=== PATIENT | female | born 1990 | race Caucasian/White ===

== ENCOUNTER 2017-08-11 00:29 | Inpatient (IN) | payer BC ==
[2017-08-11] MEDS ORDERED: Carboprost Tromethamine 250 MCG/1 ML Amp IM PRN (02:06)
[2017-08-11] MEDS ORDERED: Nalbuphine 10 MG/1 ML Vial IVPUSH PRN (02:06)
[2017-08-11] MEDS ORDERED: Lidocaine 1% 50 ML MDV INJECT PRN (02:06)
[2017-08-11] MEDS ORDERED: Methylergonovine 0.2 MG/1 ML Amp IM PRN (02:06)
[2017-08-11] MEDS ORDERED: Tranexamic Acid 1,000 MG in Sodium Chloride 0.9% 100 ML IV PRN (02:06)
[2017-08-11] MEDS ORDERED: Misoprostol 200 MCG Tab PO PRN (02:06)
[2017-08-11] MEDS ORDERED: Sodium Chloride 0.9% 10 ML Syringe FLUSH PRN (02:06)
[2017-08-11] MEDS ORDERED: Water For Irrigation,Sterile 1,000 ML Container IRR PRN (02:06)
[2017-08-11] MEDS ORDERED: Sodium Chloride 0.9% 2.5 ML Syringe FLUSH PRN (02:06)
[2017-08-11] MEDS ORDERED: Oxytocin/0.9 % Sodium Chloride 30 UNIT/500 ML BAG IV SCH (02:15)
[2017-08-11] MEDS ORDERED: Lactated Ringers 1,000 ML IV SCH (02:15)
[2017-08-11] MEDS ORDERED: Ampicillin 2 GM in Sodium Chloride 0.9% 100 ML IV ONE (02:30)
[2017-08-11] MEDS ORDERED: Ampicillin 1 GM in Sodium Chloride 0.9% 50 ML IV SCH (06:30)
[2017-08-11] MEDS ORDERED: Bisacodyl 10 MG Supp RECTAL PRN (06:51)
[2017-08-11] MEDS ORDERED: Benzocaine/Menthol 20%-0.5% Spray 78 GM Cannister TOP PRN (06:51)
[2017-08-11] MEDS ORDERED: Lanolin 100% Cream 7 GM Tube TOP PRN (06:51)
[2017-08-11] MEDS ORDERED: Acetaminophen 500 MG Tab PO PRN ×2 (06:51)
[2017-08-11] MEDS ORDERED: Docusate Sodium 100 MG Cap PO PRN (06:51)
[2017-08-11] MEDS ORDERED: Ibuprofen 400 MG Tab PO PRN (06:51)
[2017-08-11] MEDS ORDERED: Ibuprofen 800 MG Tab PO PRN (06:51)
[2017-08-11] MEDS ORDERED: oxyCODONE 5 MG Tab PO PRN (06:51)
[2017-08-11] MEDS ORDERED: Witch Hazel Medicated Pads 40/Jar TOP PRN (06:51)
--- NOTE | 2017-08-11 06:59 | PCM.LDHP ---
L&D History of Present Illness - General Date of Service: 08/11/17 Admit Problem/Dx: Patient Status Order with Admit Dx/Problem 08/11/17 00:52 Patient Status [ADT] Routine 08/11/17 06:52 Patient Status [ADT] Routine Admission Diagnosis/Problem Admission Diagnosis/Problem 08/11/17 06:52 27yo EDC 08/15/2017 39 37wks. Comes in active labor. 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: - Past Surgical History HEENT Surgical History: Reports: Tonsillectomy Social & Family History - Family History Cardiac: Reports: Blood Clots/VTE/DVT, High Cholesterol, Hypertension, Other ( See Below) Other Cardiac Family History: heart disease OBGYN: Reports: Endocrine/Metabolic: Reports: Diabetes, type II, Other (See Below) Other Endocrine/Metabolic Family History: thyroid disease Oncologic: Reports: Leukemia, Lung - Tobacco Use Smoking Status *Q: Never Smoker - Recreational Drug Use Recreational Drug Use: No H&P Review of Systems - Review of Systems: Review Of Systems: See Below General: Reports: No Symptoms HEENT: Reports: No Symptoms Pulmonary: Reports: No Symptoms Cardiovascular: Reports: No Symptoms Gastrointestinal: Reports: No Symptoms Genitourinary: Reports: No Symptoms Musculoskeletal: Reports: No Symptoms Skin: Reports: No Symptoms Psychiatric: Reports: No Symptoms Neurological: Reports: No Symptoms Hematologic/Lymphatic: Reports: No Symptoms Immunologic: Reports: No Symptoms L&D Exam - Exam Exam: See Below - Vital Signs Weight: 70.307 kg - OB Specific Movement: Active Heart Tones: Present Presentation: Vertex - Exam General: Alert, Oriented, Cooperative, Mild Distress Lungs: Normal Respiratory Effort GI/Abdominal Exam: Soft, Non-Tender, Other Genitourinary: Normal external exam, Normal bimanual exam, Cervical dilitation Back Exam: Normal Inspection, Full Range of Motion Extremities: Normal Range of Motion, Non-Tender, No Pedal Edema, Normal Capillary Refill Skin: Warm, Dry, Intact Neurological: Reflexes Equal Bilateral, Normal Speech, Normal Tone Psychiatric: Alert, Normal Affect, Normal Mood - Patient Data Lab Results Last 24 hrs: Laboratory Results - last 24 hr 08/11/17 08/11/17 Range/Units 02:22 02:22 WBC 9.10 (4.0-11.0) K/uL RBC 4.05 L (4.30-5.90) M/uL Hgb 13.3 (12.0-16.0) g/dL Hct 37.7 (36.0-46.0) % MCV 93.1 (80.0-98.0) fL MCH 32.8 H (27.0-32.0) pg MCHC 35.3 (31.0-37.0) g/dL RDW Std Deviation 46.2 (28.0-62.0) fl RDW Coeff of Humphrey 14 (11.0-15.0) % Plt Count 154 (150-400) K/uL MPV 11.90 (7.40-12.00) fL Nucleated RBC % 0.0 /100WBC Nucleated RBCs # 0 K/uL Blood Type A POSITIVE Antibody Screen NEGATIVE Result Diagrams: 08/11/17 02:22 - Problem List (1) Supervision of normal IUP (intrauterine ) in multigravida SNOMED Code(s): 560744708, 028494216, 793020292 ICD Code: Z34.80 - ENCOUNTER FOR SUPRVSN OF NORMAL , UNSP TRIMESTER Status: Acute Priority: High Current Visit: Yes Qualifiers: Trimester: third trimester Qualified Code(s): Z34.83 - Encounter for supervision of other normal , third trimester (2) (normal spontaneous vaginal delivery) SNOMED Code(s): 31198666 ICD Code: O80 - ENCOUNTER FOR FULL-TERM UNCOMPLICATED DELIVERY Status: Acute Priority: High Current Visit: Yes Problem List Initiated/Reviewed/Updated: Yes Orders Last 24hrs: Active Orders 24 hr Category Date Time Status Patient Status [ADT] Routine ADT 08/11/17 06:52 Ordered Heart Tones [RC] CONTINUOUS Care 08/11/17 02:06 Inactive Non Stress Test [RC] PER UNIT ROUTINE Care 08/11/17 00:52 Inactive May Shower [RC] ASDIRECTED Care 08/11/17 02:06 Inactive May Shower [RC] ASDIRECTED Care 08/11/17 06:51 Ordered Notify Provider [RC] PRN Care 08/11/17 02:06 Inactive Up ad Maris [RC] ASDIRECTED Care 08/11/17 00:52 Inactive Up ad Maris [RC] ASDIRECTED Care 08/11/17 06:51 Ordered Vaginal Exam [RC] Click to Edit Care 08/11/17 00:52 Inactive Vital Signs [RC] PER UNIT ROUTINE Care 08/11/17 00:52 Inactive Vital Signs [RC] PER UNIT ROUTINE Care 08/11/17 06:51 Ordered Regular Diet [DIET] Diet 08/11/17 Breakfast Ordered Acetaminophen [Tylenol Extra Strength] Med 08/11/17 06:51 Ordered 1,000 mg PO Q4H PRN Acetaminophen [Tylenol Extra Strength] Med 08/11/17 06:51 Ordered 500 mg PO Q4H PRN Benzocaine/Menthol [Dermoplast Pain Relief 20%-0.5% Med 08/11/17 06:51 Ordered [place]] 78 gm TOP ASDIRECTED PRN Bisacodyl [Dulcolax] Med 08/11/17 06:51 Ordered 10 mg RECTAL .ONCE PRN Docusate Sodium [Colace] Med 08/11/17 06:51 Ordered 100 mg PO BID PRN Ibuprofen [Motrin] Med 08/11/17 06:51 Ordered 400 mg PO Q4H PRN Ibuprofen [Motrin] Med 08/11/17 06:51 Ordered 800 mg PO Q6H PRN Lanolin [Lansinoh HPA] Med 08/11/17 06:51 Ordered See Dose Instructions TOP ASDIRECTED PRN Witch Whitney [Tucks] Med 08/11/17 06:51 Ordered 1 pad TOP ASDIRECTED PRN oxyCODONE Med 08/11/17 06:51 Ordered 5 mg PO Q2H PRN Assess Lochia [WOMSER] Per Unit Routine Oth 08/11/17 06:51 Ordered Assess Uterine Involution [WOMSER] Per Unit Routine Oth 08/11/17 06:51 Ordered Peripheral IV Discontinue [OM.PC] Routine Oth 08/11/17 06:51 Ordered Resuscitation Status Routine Resus Stat 08/11/17 06:51 Ordered Medication Orders Acetaminophen (Tylenol Extra Strength) 500 mg PO Q4H PRN PRN Reason: Pain Acetaminophen (Tylenol Extra Strength) 1,000 mg PO Q4H PRN PRN Reason: Pain Benzocaine/Menthol (Dermoplast Pain Relief 20%-0.5% [place]) 78 gm TOP ASDIRECTED PRN PRN Reason: Perineal Comfort Measure Bisacodyl (Dulcolax) 10 mg RECTAL .ONCE PRN PRN Reason: Constipation Docusate Sodium (Colace) 100 mg PO BID PRN PRN Reason: Constipation Emollient Ointment (Lansinoh Hpa) 0 gm TOP ASDIRECTED PRN PRN Reason: Sore Nipples Ibuprofen (Motrin) 400 mg PO Q4H PRN PRN Reason: Pain Ibuprofen (Motrin) 800 mg PO Q6H PRN PRN Reason: Pain Oxycodone HCl (Oxycodone) 5 mg PO Q2H PRN PRN Reason: Pain Witch Whitney (Tucks) 1 pad TOP ASDIRECTED PRN PRN Reason: comfort care Assessment/Plan Comment:: Labor A:27yo EDC 08/15/2017 39 37wks. Comes in active labor. A+, RI, GBS pos P: admitted, natural labor, GBS + received one dose of Amp 2gm, became complete and delivered a healthy baby boy. Mother and baby stable Delivery: A: of viable male, APGARS 9/9, Wt pending bonding. 1st deg lac with repair , EBL 100cc, Stable and bonding well with baby P: Routine pp plan of care.
--- NOTE | 2017-08-11 07:03 | PCM.DEL ---
L & D Note - General Info Date of Service: 08/11/17 Mother's Due Date: 08/15/14 - Delivery Note Labor: Spontaneous Delivery Outcome: Livebirth Infant Delivery Mode: Spontaneous Presentation: Vertex Nuchal Cord: None Anesthesia Type: None Anesthetic: Lidocaine (Xylocaine) 1% Plain Local Anesthetic Volume: 2cc Amniotic Fluid Description: Clear Episiotomy Type: None Laceration: 1st Degree, Perineal Suture type: Vicryl Suture size: 3-0 Placenta: Intact, Spontaneous Cord: 3 Vessels Estimated Blood Loss: 100 Resuscitation Needed: No Score 1 min: 9 Score 5 min: 9 Second Stage Interventions: Reports: Pushing, Pulls Own Legs Back Delivery Comments (Free Text/Narrative):: of viable male. Radha pushed with ctx and delivered head, shoulders and body followed easily. Infant to mothers abd with RN at for evaluation. Delayed cord clamping. Pitocin to IVF, Cord clamped x2 and cut by ABIODUN Dasilva. Placenta delivered grossly intact. Inspection noted 1st degree perineal lac that was repaired in the usual manor. Bimanual normal. EBL 100cc. APGARS 9/9. Mother and baby left in stable condition for recovery bonding well. - General Info Date of Service: 08/11/17 Admission Dx/Problem (Free Text): Patient Status Order with Admit Dx/Problem 08/11/17 00:52 Patient Status [ADT] Routine 08/11/17 06:52 Patient Status [ADT] Routine Admission Diagnosis/Problem Admission Diagnosis/Problem 08/11/17 06:52 27yo EDC 08/15/2017 39 37wks. Comes in active labor. A+, RI, GBS pos Functional Status: Reports: Pain Controlled - Review of Systems General: Reports: No Symptoms HEENT: Reports: No Symptoms Pulmonary: Reports: No Symptoms Cardiovascular: Reports: No Symptoms Gastrointestinal: Reports: No Symptoms Genitourinary: Reports: No Symptoms Musculoskeletal: Reports: No Symptoms Skin: Reports: No Symptoms Neurological: Reports: No Symptoms Psychiatric: Reports: No Symptoms - Patient Data Weight - Most Recent: 70.307 kg Lab Results Last 24 Hours: Laboratory Results - last 24 hr 08/11/17 08/11/17 Range/Units 02:22 02:22 WBC 9.10 (4.0-11.0) K/uL RBC 4.05 L (4.30-5.90) M/uL Hgb 13.3 (12.0-16.0) g/dL Hct 37.7 (36.0-46.0) % MCV 93.1 (80.0-98.0) fL MCH 32.8 H (27.0-32.0) pg MCHC 35.3 (31.0-37.0) g/dL RDW Std Deviation 46.2 (28.0-62.0) fl RDW Coeff of Humphrey 14 (11.0-15.0) % Plt Count 154 (150-400) K/uL MPV 11.90 (7.40-12.00) fL Nucleated RBC % 0.0 /100WBC Nucleated RBCs # 0 K/uL Blood Type A POSITIVE Antibody Screen NEGATIVE Med Orders - Current: Current Medications Acetaminophen (Tylenol Extra Strength) 500 mg PO Q4H PRN PRN Reason: Pain Acetaminophen (Tylenol Extra Strength) 1,000 mg PO Q4H PRN PRN Reason: Pain Benzocaine/Menthol (Dermoplast Pain Relief 20%-0.5% [place]) 78 gm TOP ASDIRECTED PRN PRN Reason: Perineal Comfort Measure Bisacodyl (Dulcolax) 10 mg RECTAL .ONCE PRN PRN Reason: Constipation Docusate Sodium (Colace) 100 mg PO BID PRN PRN Reason: Constipation Emollient Ointment (Lansinoh Hpa) 0 gm TOP ASDIRECTED PRN PRN Reason: Sore Nipples Ibuprofen (Motrin) 400 mg PO Q4H PRN PRN Reason: Pain Ibuprofen (Motrin) 800 mg PO Q6H PRN PRN Reason: Pain Oxycodone HCl (Oxycodone) 5 mg PO Q2H PRN PRN Reason: Pain Witch Whitney (Tucks) 1 pad TOP ASDIRECTED PRN PRN Reason: comfort care Discontinued Medications Carboprost Tromethamine (Hemabate Ds) 250 mcg IM ASDIRECTED PRN PRN Reason: Post Hemorrhage Tranexamic Acid 1,000 mg/ (Sodium Chloride) 110 mls @ 660 mls/hr IV ONETIME PRN PRN Reason: Bleeding Lactated Ringer's (Ringers, Lactated) 1,000 mls @ 150 mls/hr IV ASDIRECTED CASEY Last Admin: 08/11/17 02:25 Dose: 150 mls/hr Oxytocin/Sodium Chloride (Oxytocin 30 Unit/500 Ml-Ns) 30 unit in 500 mls @ 999 mls/hr IV TITRATE [facility] Last Admin: 08/11/17 06:29 Dose: 999 mls/hr Ampicillin Sodium 2 gm/ Sodium (Chloride) 100 mls @ 200 mls/hr IV ONETIME ONE Stop: 08/11/17 02:59 Last Admin: 08/11/17 02:33 Dose: 200 mls/hr Ampicillin Sodium 1 gm/ Sodium (Chloride) 50 mls @ 100 mls/hr IV Q4H [facility] Lidocaine HCl (Xylocaine 1%) 50 ml INJECT .ONCE PRN PRN Reason: Laceration repair Last Admin: 08/11/17 06:34 Dose: 50 ml Methylergonovine Maleate (Methergine) 0.2 mg IM ASDIRECTED PRN PRN Reason: Post Hemorrhage Misoprostol (Cytotec) 200 mcg PO .ONCE PRN PRN Reason: Post Hemorrhage Nalbuphine HCl (Nubain) 10 mg IVPUSH Q1H PRN PRN Reason: Pain (severe 7-10) Sodium Chloride (Saline Flush) 10 ml FLUSH ASDIRECTED PRN PRN Reason: Keep Vein Open Sodium Chloride (Saline Flush) 2.5 ml FLUSH ASDIRECTED PRN PRN Reason: Keep Vein Open Sterile Water (Sterile Water For Irrigation) 1,000 ml IRR ASDIRECTED PRN PRN Reason: delivery - Exam General: Alert, Oriented, Cooperative Lungs: Normal Respiratory Effort (Female) Exam: Normal External Exam, Normal Bimanual Exam, Vaginal Bleeding, Vaginal Tears (with repair) Back Exam: Full Range of Motion Extremities: Normal Range of Motion, Non-Tender, No Pedal Edema, Normal Capillary Refill Skin: Warm, Dry, Intact Wound/Incisions: Healing Well Neurological: No New Focal Deficit, Normal Speech, Normal Tone Psy/Mental Status: Alert, Normal Affect, Normal Mood - Problem List & Annotations (1) Supervision of normal IUP (intrauterine ) in multigravida SNOMED Code(s): 479415110, 700994160, 647007923 Code(s): Z34.80 - ENCOUNTER FOR SUPRVSN OF NORMAL , UNSP TRIMESTER Status: Acute Priority: High Current Visit: Yes Qualifiers: Trimester: third trimester Qualified Code(s): Z34.83 - Encounter for supervision of other normal , third trimester (2) (normal spontaneous vaginal delivery) SNOMED Code(s): 50938053 Code(s): O80 - ENCOUNTER FOR FULL-TERM UNCOMPLICATED DELIVERY Status: Acute Priority: High Current Visit: Yes - Problem List Review Problem List Initiated/Reviewed/Updated: Yes - My Orders Last 24 Hours: My Active Orders 08/11/17 00:52 Non Stress Test [RC] PER UNIT ROUTINE Up ad Maris [RC] ASDIRECTED Vaginal Exam [RC] Click to Edit Vital Signs [RC] PER UNIT ROUTINE 08/11/17 02:06 Heart Tones [RC] CONTINUOUS May Shower [RC] ASDIRECTED Notify Provider [RC] PRN 08/11/17 06:51 May Shower [RC] ASDIRECTED Up ad Maris [RC] ASDIRECTED Vital Signs [RC] PER UNIT ROUTINE Acetaminophen [Tylenol Extra Strength] 1,000 mg PO Q4H PRN Acetaminophen [Tylenol Extra Strength] 500 mg PO Q4H PRN Benzocaine/Menthol [Dermoplast Pain Relief 20%-0.5% [place]] 78 gm TOP ASDIRECTED PRN Bisacodyl [Dulcolax] 10 mg RECTAL .ONCE PRN Docusate Sodium [Colace] 100 mg PO BID PRN Ibuprofen [Motrin] 400 mg PO Q4H PRN Ibuprofen [Motrin] 800 mg PO Q6H PRN Lanolin [Lansinoh HPA] See Dose Instructions TOP ASDIRECTED PRN Witch Whitney [Tucks] 1 pad TOP ASDIRECTED PRN oxyCODONE 5 mg PO Q2H PRN Assess Lochia [WOMSER] Per Unit Routine Assess Uterine Involution [WOMSER] Per Unit Routine Peripheral IV Discontinue [OM.PC] Routine Resuscitation Status Routine 08/11/17 06:52 Patient Status [ADT] Routine 08/11/17 Breakfast Regular Diet [DIET] - Plan Plan:: Labor A:27yo EDC 08/15/2017 39 37wks. Comes in active labor. A+, RI, GBS pos P: admitted, natural labor, GBS + received one dose of Amp 2gm, became complete and delivered a healthy baby boy. Mother and baby stable Delivery: A: of viable male, APGARS 9/9, Wt pending bonding. 1st deg lac with repair , EBL 100cc, Stable and bonding well with baby P: Routine pp plan of care.
--- NOTE | 2017-08-12 06:51 | PCM.DCSUM1 ---
Discharge Summary - Hospital Course Free Text/Narrative:: Discharge home with . Follow up in 6 weeks for post or sooner if needed. - Discharge Data Discharge Date: 08/12/17 Discharge Disposition: Home, Self-Care 01 Condition: Good - Discharge Diagnosis/Problem(s) (1) Supervision of normal IUP (intrauterine ) in multigravida SNOMED Code(s): 464759228, 476440319, 848958578 ICD Code: Z34.80 - ENCOUNTER FOR SUPRVSN OF NORMAL , UNSP TRIMESTER Status: Acute Priority: High Current Visit: Yes Qualifiers: Trimester: third trimester Qualified Code(s): Z34.83 - Encounter for supervision of other normal , third trimester (2) (normal spontaneous vaginal delivery) SNOMED Code(s): 09141422 ICD Code: O80 - ENCOUNTER FOR FULL-TERM UNCOMPLICATED DELIVERY Status: Acute Priority: High Current Visit: Yes - Patient Instructions Diet: Usual Diet as Tolerated Activity: As Tolerated, No Strenuous Activities, Rest and Relax Today Driving: May Drive Today Showering/Bathing: May Shower Notify Provider of: Fever, Increased Pain, Swelling and Redness, Nausea and/or Vomiting Other/Special Instructions: Discharge home with . Follow up in 6 weeks for post or sooner if needed. - Discharge Plan Home Medications: Home Meds PNV95/Ferrous Fumarate/FA [ Tablet] 1 tab PO DAILY 08/11/17 [History] Referrals: [facility] [Outside] Lulu Benavides CNM [Mid-] - 09/22/17 1:30 pm - General Info Date of Service: 08/12/17 Admission Dx/Problem (Free Text: Patient Status Order with Admit Dx/Problem 08/11/17 00:52 Patient Status [ADT] Routine 08/11/17 06:52 Patient Status [ADT] Routine Admission Diagnosis/Problem Admission Diagnosis/Problem 08/11/17 06:52 27yo EDC 08/15/2017 39 37wks. Comes in active labor. A+, RI, GBS pos Functional Status: Reports: Pain Controlled, Tolerating Diet, Ambulating, Urinating - Review of Systems General: Reports: No Symptoms HEENT: Reports: No Symptoms Pulmonary: Reports: No Symptoms Cardiovascular: Reports: No Symptoms Gastrointestinal: Reports: No Symptoms Genitourinary: Reports: No Symptoms Musculoskeletal: Reports: No Symptoms Skin: Reports: No Symptoms Neurological: Reports: No Symptoms Psychiatric: Reports: No Symptoms - Patient Data Vitals - Most Recent: Last Vital Signs Temp 36.3 C 08/12/17 04:32 Pulse 71 08/12/17 04:32 Resp 16 08/12/17 04:32 BP 101/58 L 08/12/17 04:32 Pulse Ox 97 08/12/17 04:32 Weight - Most Recent: 70.307 kg Med Orders - Current: Current Medications Acetaminophen (Tylenol Extra Strength) 500 mg PO Q4H PRN PRN Reason: Pain Acetaminophen (Tylenol Extra Strength) 1,000 mg PO Q4H PRN PRN Reason: Pain Benzocaine/Menthol (Dermoplast Pain Relief 20%-0.5% [place]) 78 gm TOP ASDIRECTED PRN PRN Reason: Perineal Comfort Measure Bisacodyl (Dulcolax) 10 mg RECTAL .ONCE PRN PRN Reason: Constipation Docusate Sodium (Colace) 100 mg PO BID PRN PRN Reason: Constipation Emollient Ointment (Lansinoh Hpa) 0 gm TOP ASDIRECTED PRN PRN Reason: Sore Nipples Last Admin: 08/11/17 15:12 Dose: 7 gm Ibuprofen (Motrin) 400 mg PO Q4H PRN PRN Reason: Pain Ibuprofen (Motrin) 800 mg PO Q6H PRN PRN Reason: Pain Oxycodone HCl (Oxycodone) 5 mg PO Q2H PRN PRN Reason: Pain Witch Whitney (Tucks) 1 pad TOP ASDIRECTED PRN PRN Reason: comfort care Discontinued Medications Carboprost Tromethamine (Hemabate Ds) 250 mcg IM ASDIRECTED PRN PRN Reason: Post Hemorrhage Tranexamic Acid 1,000 mg/ (Sodium Chloride) 110 mls @ 660 mls/hr IV ONETIME PRN PRN Reason: Bleeding Lactated Ringer's (Ringers, Lactated) 1,000 mls @ 150 mls/hr IV ASDIRECTED [facility] Last Admin: 08/11/17 02:25 Dose: 150 mls/hr Oxytocin/Sodium Chloride (Oxytocin 30 Unit/500 Ml-Ns) 30 unit in 500 mls @ 999 mls/hr IV TITRATE [facility] Last Infusion: 08/11/17 06:41 Dose: 0 mls/hr Ampicillin Sodium 2 gm/ Sodium (Chloride) 100 mls @ 200 mls/hr IV ONETIME ONE Stop: 08/11/17 02:59 Last Admin: 08/11/17 02:33 Dose: 200 mls/hr Ampicillin Sodium 1 gm/ Sodium (Chloride) 50 mls @ 100 mls/hr IV Q4H [facility] Last Admin: 08/11/17 07:59 Dose: Not Given Lidocaine HCl (Xylocaine 1%) 50 ml INJECT .ONCE PRN PRN Reason: Laceration repair Last Admin: 08/11/17 06:34 Dose: 50 ml Methylergonovine Maleate (Methergine) 0.2 mg IM ASDIRECTED PRN PRN Reason: Post Hemorrhage Misoprostol (Cytotec) 200 mcg PO .ONCE PRN PRN Reason: Post Hemorrhage Nalbuphine HCl (Nubain) 10 mg IVPUSH Q1H PRN PRN Reason: Pain (severe 7-10) Sodium Chloride (Saline Flush) 10 ml FLUSH ASDIRECTED PRN PRN Reason: Keep Vein Open Sodium Chloride (Saline Flush) 2.5 ml FLUSH ASDIRECTED PRN PRN Reason: Keep Vein Open Sterile Water (Sterile Water For Irrigation) 1,000 ml IRR ASDIRECTED PRN PRN Reason: delivery - Exam General: Reports: Alert, Oriented, Cooperative, No Acute Distress Lungs: Reports: Normal Respiratory Effort GI/Abdominal Exam: Soft, Non-Tender (Female) Exam: Vaginal Bleeding Rectal (Female) Exam: Deferred Back Exam: Reports: Full Range of Motion Extremities: Normal Inspection, Normal Range of Motion, Non-Tender, No Pedal Edema, Normal Capillary Refill Skin: Reports: Warm, Dry, Intact Wound/Incisions: Reports: Healing Well Neurological: Reports: No New Focal Deficit, Normal Speech, Normal Tone Psy/Mental Status: Reports: Alert, Normal Affect, Normal Mood
== END 2017-08-12 11:30 | disposition home or self-care (01) | DRG 560 ==
LOC: MW.OBCHECK 00:29 → MW.OB 00:31 → MW.OBCHECK 02:06 → OBSVTOIN 06:28
PROVIDERS: ADMIT Obstetrics & Gynecology; ATTEND Obstetrics & Gynecology
PROC: 10E0XZZ Delivery of Products of Conception, External Approach (ICD-10-PCS; principal; 2017-08-11)
PROC: 0HQ9XZZ Repair Perineum Skin, External Approach (ICD-10-PCS; 2017-08-11)
DX: O99.824 Streptococcus B carrier state complicating childbirth (principal); O70.0 First degree perineal laceration during delivery; Z3A.39 39 weeks gestation of pregnancy; Z37.0 Single live birth
CPT/HCPCS: 59025; 59409; 85027; 86850; 86900; 86901; A9270-GY; J0290; J2590; J7030; J7120

== ENCOUNTER 2017-08-20 22:44 | Inpatient (IN) | payer BC ==
[2017-08-20] MEDS ORDERED: Sodium Chloride 0.9% 1,000 ML IV ONE (23:00)
--- NOTE | 2017-08-20 23:08 | EDM.PDOC ---
ED HPI GENERAL MEDICAL PROBLEM - General Chief Complaint: Fever Stated Complaint: CHILLS/BODYACHE/HEADACHE Time Seen by Provider: 08/20/17 22:58 - History of Present Illness INITIAL COMMENTS - FREE TEXT/NARRATIVE: HISTORY AND PHYSICAL: History of present illness: Patient's 27-year-old white female is 10 days status post vaginal delivery this was uncomplicated presents now a concern of lower abdominal pain and fever 1 day she's had some intermittent vaginal bleeding and lower abdominal discomfort she denies urinary complaints. She had no cough no shortness of breath she denies any erythema or localized breast discomfort. There's been no vomiting no diarrhea Review of systems: As per history of present illness and below otherwise all systems reviewed and negative. Past medical history: As per history of present illness and as reviewed below otherwise noncontributory. Surgical history: As per history of present illness and as reviewed below otherwise noncontributory. Social history: No reported history of drug or alcohol abuse. Family history: As per history of present illness and as reviewed below otherwise noncontributory. Physical exam: HEENT: Atraumatic, normocephalic, pupils reactive, negative for conjunctival pallor or scleral icterus, mucous membranes moist, throat clear, neck supple, nontender, trachea midline. Lungs: Clear to auscultation, breath sounds equal bilaterally, chest nontender. Heart: S1S2, regular, negative for clicks, rubs, or JVD. Abdomen: Soft, nondistended, mild tenderness suprapubically no rebound no guarding. Negative for masses or hepatosplenomegaly. Negative for costovertebral tenderness. Pelvis: Stable nontender. Genitourinary: Deferred. Rectal: Deferred. Extremities: Atraumatic, negative for cords or calf pain. Neurovascular unremarkable. Neuro: Awake, alert, oriented. Cranial nerves II through XII unremarkable. Cerebellum unremarkable. Motor and sensory unremarkable throughout. Exam nonfocal. Diagnostics: CBC CMP UA urine culture blood culture 2 pelvic ultrasound chest x-ray Therapeutics: Saline 1 L bolus cefotaxime 2 g IV Impression: In 10 days #2 fever #3 lower abdominal pain rule out endometritis Definitive disposition and diagnosis as appropriate pending reevaluation and review of above. 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: - Past Surgical History HEENT Surgical History: Reports: Tonsillectomy Social & Family History - Family History Cardiac: Reports: Blood Clots/VTE/DVT, High Cholesterol, Hypertension, Other ( See Below) Other Cardiac Family History: heart disease OBGYN: Reports: Endocrine/Metabolic: Reports: Diabetes, type II, Other (See Below) Other Endocrine/Metabolic Family History: thyroid disease Oncologic: Reports: Leukemia, Lung - Tobacco Use Smoking Status *Q: Never Smoker - Recreational Drug Use Recreational Drug Use: No ED ROS GENERAL - Review of Systems Review Of Systems: ROS reveals no pertinent complaints other than HPI. ED EXAM, GENERAL - Physical Exam Exam: See Below (dictation) Course - Vital Signs Last Recorded V/S: Last Vital Signs Temp 36.4 C 08/20/17 23:08 Pulse 72 08/21/17 00:11 Resp 18 08/21/17 00:11 BP 90/51 L 08/21/17 00:11 Pulse Ox 95 08/20/17 23:08 - Orders/Labs/Meds Orders: Active Orders 24 hr Category Date Time Status Chest 1V Frontal [CR] Stat Exams 08/20/17 23:00 Taken Pelvis Non OB Ltd [US] Stat Exams 08/21/17 00:37 Taken CULTURE BLOOD [BC] Stat Lab 08/20/17 23:10 Received CULTURE BLOOD [BC] Stat Lab 08/20/17 23:20 Received CULTURE URINE [RM] Stat Lab 08/21/17 00:34 Ordered UA W/MICROSCOPIC [URIN] Stat Lab 08/21/17 00:34 Ordered Blood Culture x2 Reflex Set [OM.PC] Stat Oth 08/20/17 22:59 Ordered Labs: Laboratory Tests 08/20/17 08/20/17 08/20/17 Range/Units 23:10 23:20 23:20 WBC 18.70 H (4.0-11.0) K/uL RBC 3.84 L (4.30-5.90) M/uL Hgb 12.6 (12.0-16.0) g/dL Hct 35.9 L (36.0-46.0) % MCV 93.5 (80.0-98.0) fL MCH 32.8 H (27.0-32.0) pg MCHC 35.1 (31.0-37.0) g/dL RDW Std Deviation 45.4 (28.0-62.0) fl RDW Coeff of Humphrey 13 (11.0-15.0) % Plt Count 259 (150-400) K/uL MPV 10.20 (7.40-12.00) fL Neut % (Auto) 89.3 H (48.0-80.0) % Lymph % (Auto) 5.4 L (16.0-40.0) % [place] % (Auto) 5.2 (0.0-15.0) % Eos % (Auto) 0.0 (0.0-7.0) % Baso % (Auto) 0.1 (0.0-1.5) % Neut # (Auto) 16.7 H (1.4-5.7) K/uL Lymph # (Auto) 1.0 (0.6-2.4) K/uL [place] # (Auto) 1.0 H (0.0-0.8) K/uL Eos # (Auto) 0.0 (0.0-0.7) K/uL Baso # (Auto) 0.0 (0.0-0.1) K/uL Nucleated RBC % 0.0 /100WBC Nucleated RBCs # 0 K/uL INR 1.02 Lactate (0.20-2.00) mmol/L Sodium 136 (136-145) mmol/L Potassium 3.3 L (3.5-5.1) mmol/L Chloride 103 (98-107) mmol/L Carbon Dioxide 21.2 (21.0-32.0) mmol/L BUN 16 (7.0-18.0) mg/dL Creatinine 1.0 (0.6-1.0) mg/dL Est Cr Clr Drug Dosing TNP Estimated GFR (MDRD) > 60.0 ml/min Glucose 129 H (74-106) mg/dL Calcium 8.5 (8.5-10.1) mg/dL Total Bilirubin 0.4 (0.2-1.0) mg/dL AST 12 L (15-37) IU/L ALT 15 (14-63) IU/L Alkaline Phosphatase 55 (46-116) U/L Total Protein 6.6 (6.4-8.2) g/dL Albumin 2.8 L (3.4-5.0) g/dL Globulin 3.8 H (2.0-3.5) g/dL Albumin/Globulin Ratio 0.7 L (1.3-2.8) Urine Color Urine Appearance Urine pH (5.0-8.0) Ur Specific [place] (1.001-1.035) Urine Protein (NEGATIVE) mg/dL Urine Glucose (UA) (NEGATIVE) mg/dL Urine Ketones (NEGATIVE) mg/dL Urine Occult Blood (NEGATIVE) Urine Nitrite (NEGATIVE) Urine Bilirubin (NEGATIVE) Urine Urobilinogen (<2.0) EU/dL Ur Leukocyte Esterase (NEGATIVE) Urine RBC (0-2/HPF) Urine WBC (0-5/HPF) Ur Epithelial Cells (NONE-FEW) Urine Bacteria (NEGATIVE) Urine Mucus (NONE-MOD) 08/20/17 08/21/17 Range/Units 23:20 00:34 WBC (4.0-11.0) K/uL RBC (4.30-5.90) M/uL Hgb (12.0-16.0) g/dL Hct (36.0-46.0) % MCV (80.0-98.0) fL MCH (27.0-32.0) pg MCHC (31.0-37.0) g/dL RDW Std Deviation (28.0-62.0) fl RDW Coeff of Humphrey (11.0-15.0) % Plt Count (150-400) K/uL MPV (7.40-12.00) fL Neut % (Auto) (48.0-80.0) % Lymph % (Auto) (16.0-40.0) % [place] % (Auto) (0.0-15.0) % Eos % (Auto) (0.0-7.0) % Baso % (Auto) (0.0-1.5) % Neut # (Auto) (1.4-5.7) K/uL Lymph # (Auto) (0.6-2.4) K/uL [place] # (Auto) (0.0-0.8) K/uL Eos # (Auto) (0.0-0.7) K/uL Baso # (Auto) (0.0-0.1) K/uL Nucleated RBC % /100WBC Nucleated RBCs # K/uL INR Lactate 0.6 (0.20-2.00) mmol/L Sodium (136-145) mmol/L Potassium (3.5-5.1) mmol/L Chloride (98-107) mmol/L Carbon Dioxide (21.0-32.0) mmol/L BUN (7.0-18.0) mg/dL Creatinine (0.6-1.0) mg/dL Est Cr Clr Drug Dosing Estimated GFR (MDRD) ml/min Glucose (74-106) mg/dL Calcium (8.5-10.1) mg/dL Total Bilirubin (0.2-1.0) mg/dL AST (15-37) IU/L ALT (14-63) IU/L Alkaline Phosphatase (46-116) U/L Total Protein (6.4-8.2) g/dL Albumin (3.4-5.0) g/dL Globulin (2.0-3.5) g/dL Albumin/Globulin Ratio (1.3-2.8) Urine Color YELLOW Urine Appearance CLEAR Urine pH 5.5 (5.0-8.0) Ur Specific [place] 1.010 (1.001-1.035) Urine Protein NEGATIVE (NEGATIVE) mg/dL Urine Glucose (UA) NEGATIVE (NEGATIVE) mg/dL Urine Ketones 15 H (NEGATIVE) mg/dL Urine Occult Blood SMALL H (NEGATIVE) Urine Nitrite NEGATIVE (NEGATIVE) Urine Bilirubin NEGATIVE (NEGATIVE) Urine Urobilinogen 0.2 (<2.0) EU/dL Ur Leukocyte Esterase MODERATE (NEGATIVE) Urine RBC 0-1 (0-2/HPF) Urine WBC 6-10 (0-5/HPF) Ur Epithelial Cells OCCASIONAL (NONE-FEW) Urine Bacteria FEW (NEGATIVE) Urine Mucus LIGHT (NONE-MOD) Meds: Medications Discontinued Medications Generic Name Dose Route Start Last Admin Trade Name Freq PRN Reason Stop Dose Admin Sodium Chloride 1,000 mls @ 999 mls/hr 08/20/17 23:00 08/20/17 23:30 Normal Saline IV 08/21/17 00:00 999 mls/hr STAT ONE Administration Cefotaxime Sodium 2 gm/ Sodium 100 mls @ 200 mls/hr 08/20/17 23:03 08/21/17 00:09 Chloride IV 08/20/17 23:04 200 mls/hr ONETIME ONE Administration Departure - Departure Time of Disposition: 01:48 Disposition: Admitted As Inpatient 66 Condition: Good Clinical Impression: Endometritis, History of fever, Leukocytosis - Discharge Information Referrals: Lulu Benavides CNM [Primary Care Provider] - Forms: ED Department Discharge - My Orders Last 24 Hours: My Active Orders 08/20/17 22:59 Blood Culture x2 Reflex Set [OM.PC] Stat 08/20/17 23:00 Chest 1V Frontal [CR] Stat 08/20/17 23:10 CULTURE BLOOD [BC] Stat 08/20/17 23:20 CULTURE BLOOD [BC] Stat 08/21/17 00:34 CULTURE URINE [RM] Stat UA W/MICROSCOPIC [URIN] Stat 08/21/17 00:37 Pelvis Non OB Ltd [US] Stat - Assessment/Plan Last 24 Hours: My Active Orders 08/20/17 22:59 Blood Culture x2 Reflex Set [OM.PC] Stat 08/20/17 23:00 Chest 1V Frontal [CR] Stat 08/20/17 23:10 CULTURE BLOOD [BC] Stat 08/20/17 23:20 CULTURE BLOOD [BC] Stat 08/21/17 00:34 CULTURE URINE [RM] Stat UA W/MICROSCOPIC [URIN] Stat 08/21/17 00:37 Pelvis Non OB Ltd [US] Stat
[2017-08-21 00:16] LABS: CHLORIDE,CL 103 mmol/L (98-107); SODIUM,NA 136 mmol/L (136-145)
[2017-08-21] MEDS ORDERED: Morphine 4 MG/ML Syringe IVPUSH PRN (02:33)
[2017-08-21] MEDS ORDERED: Ondansetron 4 MG/2 ML SDV IVPUSH PRN (02:33)
[2017-08-21] MEDS ORDERED: Lactated Ringers 1,000 ML IV SCH (02:45)
[2017-08-21 06:51] LABS: CHLORIDE,CL 109 mmol/L (98-107); SODIUM,NA 140 mmol/L (136-145)
[2017-08-21] MEDS ORDERED: Acetaminophen 500 MG Tab PO PRN (08:58)
[2017-08-21] MEDS ORDERED: Ibuprofen 800 MG Tab PO PRN (08:59)
[2017-08-21] MEDS ORDERED: Sodium Chloride 0.9% 10 ML Syringe FLUSH PRN (09:20)
[2017-08-21] MEDS ORDERED: Sodium Chloride 0.9% 2.5 ML Syringe FLUSH PRN (09:20)
--- NOTE | 2017-08-21 12:31 | PCM.HP ---
H&P History of Present Illness - General Date of Service: 08/21/17 Admit Problem/Dx: Admission Diagnosis/Problem Admission Diagnosis/Problem Endometritis 27 yo , delivered on 08/11/2017 healthy baby boy, uncomplicated and delivery. Noted at delivery a small 1st degree laceration that was repaired. She is breast feeding. She comes to the ER this am due to fever and pain in the lower abdomen. Source of Information: Patient History Limitations: Reports: No Limitations - History of Present Illness Onset of Symptoms: Reports: Gradual Symptom Onset Date: 08/16/17 Quality: Reports: Ache, Burning Improves with: Reports: Medication Lower Abdominal Pain Score (Numeric/FACES): 4 - Related Data Allergies/Adverse Reactions: Allergies Allergy/AdvReac Type Severity Reaction Status Date / Time No Known Allergies Allergy Verified 08/20/17 23:17 Home Medications: Home Meds PNV95/Ferrous Fumarate/FA [ Tablet] 1 tab PO DAILY 08/11/17 [History] Past Medical History HEENT History: Reports: None Gastrointestinal History: Reports: GERD 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: - Past Surgical History HEENT Surgical History: Reports: Tonsillectomy Social & Family History - Family History Family Medical History: Noncontributory Cardiac: Reports: Blood Clots/VTE/DVT, High Cholesterol, Hypertension, Other ( See Below) Other Cardiac Family History: heart disease OBGYN: Reports: Endocrine/Metabolic: Reports: Diabetes, type II, Other (See Below) Other Endocrine/Metabolic Family History: thyroid disease Oncologic: Reports: Leukemia, Lung - Tobacco Use Smoking Status *Q: Never Smoker Second Hand Smoke Exposure: No - Caffeine Use Caffeine Use: Reports: Coffee - Recreational Drug Use Recreational Drug Use: No H&P Review of Systems - Review of Systems: Review Of Systems: See Below General: Reports: Fever, Chills, Malaise, Fatigue HEENT: Reports: No Symptoms Pulmonary: Reports: No Symptoms Cardiovascular: Reports: No Symptoms Gastrointestinal: Reports: Abdominal Pain Genitourinary: Reports: No Symptoms Musculoskeletal: Reports: No Symptoms Skin: Reports: No Symptoms Psychiatric: Reports: No Symptoms Neurological: Reports: No Symptoms Hematologic/Lymphatic: Reports: No Symptoms Immunologic: Reports: No Symptoms Exam - Exam Exam: See Below - Vital Signs Vital Signs: Last Vital Signs Temp 37.7 C 08/21/17 11:36 Pulse 102 H 08/21/17 11:36 Resp 20 08/21/17 11:36 BP 96/55 L 08/21/17 11:36 Pulse Ox 98 08/21/17 11:36 Weight: 61.416 kg - Exam General: Alert, Oriented, Cooperative HEENT: Hearing Intact Lungs: Clear to Auscultation, Normal Respiratory Effort Cardiovascular: Regular Rate, Regular Rhythm, Normal S1, Normal S2 GI/Abdominal Exam: Soft, No Organomegaly, No Distention, No Abnormal Bruit, No Mass, Pelvis Stable (Female) Exam: Vaginal Bleeding (reports as scant to small lochia) Rectal (Female) Exam: Deferred Extremities: Normal Range of Motion, No Pedal Edema, Normal Capillary Refill Skin: Warm, Dry, Intact Neurological: Reflexes Equal Bilateral, Normal Gait, Normal Speech, Normal Tone Neuro Extensive - Mental Status: Alert, Oriented x3, Normal Mood/Affect, Normal Cognition, Memory Intact Neuro Extensive - Motor, Sensory, Reflexes: Normal Gait Psychiatric: Alert, Normal Affect, Normal Mood - Patient Data Lab Results Last 24 hrs: Laboratory Results - last 24 hr 08/20/17 08/20/17 08/20/17 Range/Units 23:10 23:20 23:20 WBC 18.70 H (4.0-11.0) K/uL RBC 3.84 L (4.30-5.90) M/uL Hgb 12.6 (12.0-16.0) g/dL Hct 35.9 L (36.0-46.0) % MCV 93.5 (80.0-98.0) fL MCH 32.8 H (27.0-32.0) pg MCHC 35.1 (31.0-37.0) g/dL RDW Std Deviation 45.4 (28.0-62.0) fl RDW Coeff of Humphrey 13 (11.0-15.0) % Plt Count 259 (150-400) K/uL MPV 10.20 (7.40-12.00) fL Neut % (Auto) 89.3 H (48.0-80.0) % Lymph % (Auto) 5.4 L (16.0-40.0) % [place] % (Auto) 5.2 (0.0-15.0) % Eos % (Auto) 0.0 (0.0-7.0) % Baso % (Auto) 0.1 (0.0-1.5) % Neut # (Auto) 16.7 H (1.4-5.7) K/uL Lymph # (Auto) 1.0 (0.6-2.4) K/uL [place] # (Auto) 1.0 H (0.0-0.8) K/uL Eos # (Auto) 0.0 (0.0-0.7) K/uL Baso # (Auto) 0.0 (0.0-0.1) K/uL Nucleated RBC % 0.0 /100WBC Nucleated RBCs # 0 K/uL INR 1.02 Lactate (0.20-2.00) mmol/L Sodium 136 (136-145) mmol/L Potassium 3.3 L (3.5-5.1) mmol/L Chloride 103 (98-107) mmol/L Carbon Dioxide 21.2 (21.0-32.0) mmol/L BUN 16 (7.0-18.0) mg/dL Creatinine 1.0 (0.6-1.0) mg/dL Est Cr Clr Drug Dosing TNP Estimated GFR (MDRD) > 60.0 ml/min Glucose 129 H (74-106) mg/dL Calcium 8.5 (8.5-10.1) mg/dL Total Bilirubin 0.4 (0.2-1.0) mg/dL AST 12 L (15-37) IU/L ALT 15 (14-63) IU/L Alkaline Phosphatase 55 (46-116) U/L Total Protein 6.6 (6.4-8.2) g/dL Albumin 2.8 L (3.4-5.0) g/dL Globulin 3.8 H (2.0-3.5) g/dL Albumin/Globulin Ratio 0.7 L (1.3-2.8) Urine Color Urine Appearance Urine pH (5.0-8.0) Ur Specific [place] (1.001-1.035) Urine Protein (NEGATIVE) mg/dL Urine Glucose (UA) (NEGATIVE) mg/dL Urine Ketones (NEGATIVE) mg/dL Urine Occult Blood (NEGATIVE) Urine Nitrite (NEGATIVE) Urine Bilirubin (NEGATIVE) Urine Urobilinogen (<2.0) EU/dL Ur Leukocyte Esterase (NEGATIVE) Urine RBC (0-2/HPF) Urine WBC (0-5/HPF) Ur Epithelial Cells (NONE-FEW) Urine Bacteria (NEGATIVE) Urine Mucus (NONE-MOD) 08/20/17 08/21/17 08/21/17 Range/Units 23:20 00:34 05:57 WBC 13.40 H (4.0-11.0) K/uL RBC 3.76 L (4.30-5.90) M/uL Hgb 12.0 (12.0-16.0) g/dL Hct 35.6 L (36.0-46.0) % MCV 94.7 (80.0-98.0) fL MCH 31.9 (27.0-32.0) pg MCHC 33.7 (31.0-37.0) g/dL RDW Std Deviation 46.2 (28.0-62.0) fl RDW Coeff of Humphrey 13 (11.0-15.0) % Plt Count 244 (150-400) K/uL MPV 10.20 (7.40-12.00) fL Neut % (Auto) 88.5 H (48.0-80.0) % Lymph % (Auto) 8.7 L (16.0-40.0) % [place] % (Auto) 2.6 (0.0-15.0) % Eos % (Auto) 0.1 (0.0-7.0) % Baso % (Auto) 0.1 (0.0-1.5) % Neut # (Auto) 11.9 H (1.4-5.7) K/uL Lymph # (Auto) 1.2 (0.6-2.4) K/uL [place] # (Auto) 0.4 (0.0-0.8) K/uL Eos # (Auto) 0.0 (0.0-0.7) K/uL Baso # (Auto) 0.0 (0.0-0.1) K/uL Nucleated RBC % 0.0 /100WBC Nucleated RBCs # 0 K/uL INR Lactate 0.6 (0.20-2.00) mmol/L Sodium (136-145) mmol/L Potassium (3.5-5.1) mmol/L Chloride (98-107) mmol/L Carbon Dioxide (21.0-32.0) mmol/L BUN (7.0-18.0) mg/dL Creatinine (0.6-1.0) mg/dL Est Cr Clr Drug Dosing Estimated GFR (MDRD) ml/min Glucose (74-106) mg/dL Calcium (8.5-10.1) mg/dL Total Bilirubin (0.2-1.0) mg/dL AST (15-37) IU/L ALT (14-63) IU/L Alkaline Phosphatase (46-116) U/L Total Protein (6.4-8.2) g/dL Albumin (3.4-5.0) g/dL Globulin (2.0-3.5) g/dL Albumin/Globulin Ratio (1.3-2.8) Urine Color YELLOW Urine Appearance CLEAR Urine pH 5.5 (5.0-8.0) Ur Specific [place] 1.010 (1.001-1.035) Urine Protein NEGATIVE (NEGATIVE) mg/dL Urine Glucose (UA) NEGATIVE (NEGATIVE) mg/dL Urine Ketones 15 H (NEGATIVE) mg/dL Urine Occult Blood SMALL H (NEGATIVE) Urine Nitrite NEGATIVE (NEGATIVE) Urine Bilirubin NEGATIVE (NEGATIVE) Urine Urobilinogen 0.2 (<2.0) EU/dL Ur Leukocyte Esterase MODERATE (NEGATIVE) Urine RBC 0-1 (0-2/HPF) Urine WBC 6-10 (0-5/HPF) Ur Epithelial Cells OCCASIONAL (NONE-FEW) Urine Bacteria FEW (NEGATIVE) Urine Mucus LIGHT (NONE-MOD) 08/21/17 Range/Units 05:57 WBC (4.0-11.0) K/uL RBC (4.30-5.90) M/uL Hgb (12.0-16.0) g/dL Hct (36.0-46.0) % MCV (80.0-98.0) fL MCH (27.0-32.0) pg MCHC (31.0-37.0) g/dL RDW Std Deviation (28.0-62.0) fl RDW Coeff of [place] (11.0-15.0) % Plt Count (150-400) K/uL MPV (7.40-12.00) fL Neut % (Auto) (48.0-80.0) % Lymph % (Auto) (16.0-40.0) % [place] % (Auto) (0.0-15.0) % Eos % (Auto) (0.0-7.0) % Baso % (Auto) (0.0-1.5) % Neut # (Auto) (1.4-5.7) K/uL Lymph # (Auto) (0.6-2.4) K/uL [place] # (Auto) (0.0-0.8) K/uL Eos # (Auto) (0.0-0.7) K/uL Baso # (Auto) (0.0-0.1) K/uL Nucleated RBC % /100WBC Nucleated RBCs # K/uL INR Lactate (0.20-2.00) mmol/L Sodium 140 (136-145) mmol/L Potassium 3.6 (3.5-5.1) mmol/L Chloride 109 H (98-107) mmol/L Carbon Dioxide 22.1 (21.0-32.0) mmol/L BUN 12 (7.0-18.0) mg/dL Creatinine 0.7 (0.6-1.0) mg/dL Est Cr Clr Drug Dosing 117.04 Estimated GFR (MDRD) > 60.0 ml/min Glucose 89 (74-106) mg/dL Calcium 8.1 L (8.5-10.1) mg/dL Total Bilirubin 0.3 (0.2-1.0) mg/dL AST 13 L (15-37) IU/L ALT 13 L (14-63) IU/L Alkaline Phosphatase 51 (46-116) U/L Total Protein 5.7 L (6.4-8.2) g/dL Albumin 2.3 L (3.4-5.0) g/dL Globulin 3.4 (2.0-3.5) g/dL Albumin/Globulin Ratio 0.7 L (1.3-2.8) Urine Color Urine Appearance Urine pH (5.0-8.0) Ur Specific [place] (1.001-1.035) Urine Protein (NEGATIVE) mg/dL Urine Glucose (UA) (NEGATIVE) mg/dL Urine Ketones (NEGATIVE) mg/dL Urine Occult Blood (NEGATIVE) Urine Nitrite (NEGATIVE) Urine Bilirubin (NEGATIVE) Urine Urobilinogen (<2.0) EU/dL Ur Leukocyte Esterase (NEGATIVE) Urine RBC (0-2/HPF) Urine WBC (0-5/HPF) Ur Epithelial Cells (NONE-FEW) Urine Bacteria (NEGATIVE) Urine Mucus (NONE-MOD) Result Diagrams: 08/21/17 05:57 08/21/17 05:57 *Q Meaningful Use (ADM) - VTE Risk Assess *Q Each Risk Factor Represents 1 Point: or , Less than 1 Month Total Score 1 Point Risk Factors: 1 - Problem List (1) fever, current hospitalization SNOMED Code(s): 451742146, 291890807 ICD Code: O86.4 - PYREXIA OF UNKNOWN ORIGIN FOLLOWING DELIVERY Status: Acute Priority: High Current Visit: Yes Problem List Initiated/Reviewed/Updated: Yes Orders Last 24hrs: Active Orders 24 hr Category Date Time Status Patient Status [ADT] Stat ADT 08/21/17 01:49 Active Regular Diet [DIET] Diet 08/21/17 Lunch Active Chest 1V Frontal [CR] Stat Exams 08/20/17 23:00 Taken Pelvis Non OB Ltd [US] Stat Exams 08/21/17 00:37 Taken CULTURE BLOOD [BC] Stat Lab 08/20/17 23:10 Received CULTURE BLOOD [BC] Stat Lab 08/20/17 23:20 Received CULTURE URINE [RM] Stat Lab 08/21/17 00:34 Ordered UA W/MICROSCOPIC [URIN] Stat Lab 08/21/17 00:34 Ordered Acetaminophen [Tylenol Extra Strength] Med 08/21/17 08:58 Active 1,000 mg PO Q6H PRN Cefotaxime [Claforan] 2 gm Med 08/21/17 14:00 Active Sodium Chloride 0.9% [Normal Saline] 100 ml IV Q8HR Ibuprofen [Motrin] Med 08/21/17 08:59 Active 800 mg PO Q8H PRN Lactated Ringers [Ringers, Lactated] 1,000 ml Med 08/21/17 02:45 Active IV ASDIRECTED Morphine Med 08/21/17 02:33 Active See Dose Instructions IVPUSH Q4H PRN Ondansetron [Zofran] Med 08/21/17 02:33 Active 4 mg IVPUSH Q4H PRN Sodium Chloride 0.9% [Saline Flush] Med 08/21/17 09:20 Active 10 ml FLUSH ASDIRECTED PRN Sodium Chloride 0.9% [Saline Flush] Med 08/21/17 09:20 Active 2.5 ml FLUSH ASDIRECTED PRN Blood Culture x2 Reflex Set [OM.PC] Stat Oth 08/20/17 22:59 Ordered Convert IV to Saline Lock [OM.PC] Routine Oth 08/21/17 09:20 Ordered Medication Orders Acetaminophen (Tylenol Extra Strength) 1,000 mg PO Q6H PRN PRN Reason: Pain Lactated Ringer's (Ringers, Lactated) 1,000 mls @ 150 mls/hr IV ASDIRECTED CASEY Last Admin: 08/21/17 02:55 Dose: 150 mls/hr Cefotaxime Sodium 2 gm/ Sodium (Chloride) 100 mls @ 200 mls/hr IV Q8HR CAESY Ibuprofen (Motrin) 800 mg PO Q8H PRN PRN Reason: Pain Morphine Sulfate (Morphine) 0 mg IVPUSH Q4H PRN PRN Reason: Pain Ondansetron HCl (Zofran) 4 mg IVPUSH Q4H PRN PRN Reason: Nausea/Vomiting Sodium Chloride (Saline Flush) 10 ml FLUSH ASDIRECTED PRN PRN Reason: Keep Vein Open Sodium Chloride (Saline Flush) 2.5 ml FLUSH ASDIRECTED PRN PRN Reason: Keep Vein Open Assessment/Plan Comment:: Admit A: 27 yo , delivered on 08/11/2017 healthy baby boy, uncomplicated and delivery. Noted at delivery a small 1st degree laceration that was repaired. She is breast feeding. She comes to the ER this am due to fever and pain in the lower abdomen. WBC last pm 2300 18.7 this am [id number] P: Admit 24h ops, continue Cefotazime 2gm q8h (noted safe in breast feeding per [facility]), Reg diet. Repeat CBC at 1700, if stable in am may d/c with po antibiotics.
--- NOTE | 2017-08-21 16:18 | CR ---
EXAM DATE: 08/21/17 PATIENT'S AGE: 27 Patient: RENETTA RICE Facility: [place], [place] Site . Site : 1990 Study: XRay Chest [id number]/[id number] 11:31:49 PM Ordering Physician: Negin Diaz Final Report: INDICATION: 10 days with fever, abdominal pain. Worsening bleeding. TECHNIQUE: Chest radiograph 1 view COMPARISON: None FINDINGS: Cardiovascular and mediastinum: The heart silhouette is normal in size and morphology. The mediastinum is normal in appearance. Lungs and pleural spaces: Both lungs are unremarkable in appearance. No sign of pleural effusion seen. No pneumothorax is identified. Bones and soft tissues: No significant findings. IMPRESSION: 1. No acute cardiopulmonary disease is seen. Dictated by Gordon Workman MD @ 08/20/2017 11:34:38 PM Dictated by: Gordon Workman MD @ 08/20/2017 23:34:43 (Electronic Signature) Report Signed by Proxy. [facility]
--- NOTE | 2017-08-21 16:39 | US ---
EXAM DATE: 08/21/17 PATIENT'S AGE: 27 Patient: RENETTA RICE Facility: [place], [place] Site . Site : 1990 Study: US Pelvis [id number] 1:17:34 AM Ordering Physician: Negin Diaz Final Report: INDICATION: Fever, pain and bleeding 10 days following vaginal delivery. TECHNIQUE: Ultrasound pelvis transabdominal and transvaginal for better assessment or to better visualize the endometrium. Real time sonographic images with Spectral and color Doppler imaging of the ovaries were obtained. COMPARISON: None FINDINGS: The uterus has a appearance. Mixed echogenic material/fluid is present within the endometrial canal worrisome for retained products of conception. Right ovary: 1.8 centimeters x 1.6 centimeters x 3.5 centimeter. No ovarian or adnexal masses. Normal arterial and venous blood flow. Left ovary: 3.9 centimeter x 3.3 centimeter x 1.0 centimeter. No ovarian or adnexal masses. Normal arterial and venous blood flow. Cul-de-sac: No significant free fluid. IMPRESSION: Mixed echogenic material/fluid present within the endometrial canal and worrisome for retained products of conception. Dictated by Jason Arias MD @ 08/21/2017 1:22:02 AM Dictated by: Jason Arias MD @ 08/21/2017 01:22:11 (Electronic Signature) Report Signed by Proxy. [facility]
--- NOTE | 2017-08-22 11:08 | PCM.PN ---
- General Info Date of Service: 08/22/17 Functional Status: Reports: Pain Controlled - Review of Systems General: Reports: No Symptoms HEENT: Reports: No Symptoms Pulmonary: Reports: No Symptoms Cardiovascular: Reports: No Symptoms Gastrointestinal: Reports: No Symptoms Genitourinary: Reports: No Symptoms Musculoskeletal: Reports: No Symptoms Skin: Reports: No Symptoms Neurological: Reports: No Symptoms Psychiatric: Reports: No Symptoms - Patient Data Vitals - Most Recent: Last Vital Signs Temp 37.2 C 08/22/17 07:40 Pulse 75 08/22/17 07:40 Resp 13 08/22/17 07:40 BP 92/56 L 08/22/17 07:40 Pulse Ox 96 08/22/17 07:40 Weight - Most Recent: 61.416 kg I&O - Last 24 Hours: Intake & Output 08/21/17 08/22/17 08/22/17 22:59 06:59 14:59 Intake Total 1320 300 Output Total 800 650 Balance 520 -350 Lab Results Last 24 Hours: Laboratory Results - last 24 hr 08/21/17 Range/Units 16:55 WBC 14.78 H (4.0-11.0) K/uL RBC 3.74 L (4.30-5.90) M/uL Hgb 12.1 (12.0-16.0) g/dL Hct 35.1 L (36.0-46.0) % MCV 93.9 (80.0-98.0) fL MCH 32.4 H (27.0-32.0) pg MCHC 34.5 (31.0-37.0) g/dL RDW Std Deviation 47.0 (28.0-62.0) fl RDW Coeff of Humphrey 14 (11.0-15.0) % Plt Count 274 (150-400) K/uL MPV 10.20 (7.40-12.00) fL Nucleated RBC % 0.0 /100WBC Nucleated RBCs # 0 K/uL Ishan Results Last 24 Hours: Microbiology 08/21/17 00:34 Urine Culture - Final Urine, Clean Catch MIXED JONATHAN <1000 CFU/ML 08/20/17 23:20 Aerobic Blood Culture - Preliminary Blood - Venous - Lab Draw NO GROWTH AFTER 1 DAY Anaerobic Blood Culture - Preliminary NO GROWTH AFTER 1 DAY 08/20/17 23:10 Aerobic Blood Culture - Preliminary Blood - Venous NO GROWTH AFTER 1 DAY Anaerobic Blood Culture - Preliminary NO GROWTH AFTER 1 DAY Med Orders - Current: Current Medications Acetaminophen (Tylenol Extra Strength) 1,000 mg PO Q6H PRN PRN Reason: Pain Lactated Ringer's (Ringers, Lactated) 1,000 mls @ 150 mls/hr IV ASDIRECTED [facility] Last Admin: 08/21/17 02:55 Dose: 150 mls/hr Cefotaxime Sodium 2 gm/ Sodium (Chloride) 100 mls @ 200 mls/hr IV Q8HR [facility] Last Admin: 08/22/17 05:16 Dose: 200 mls/hr Ibuprofen (Motrin) 800 mg PO Q8H PRN PRN Reason: Pain Last Admin: 08/21/17 15:25 Dose: 800 mg Morphine Sulfate (Morphine) 0 mg IVPUSH Q4H PRN PRN Reason: Pain Ondansetron HCl (Zofran) 4 mg IVPUSH Q4H PRN PRN Reason: Nausea/Vomiting Sodium Chloride (Saline Flush) 10 ml FLUSH ASDIRECTED PRN PRN Reason: Keep Vein Open Sodium Chloride (Saline Flush) 2.5 ml FLUSH ASDIRECTED PRN PRN Reason: Keep Vein Open Discontinued Medications Sodium Chloride (Normal Saline) 1,000 mls @ 999 mls/hr IV STAT ONE Stop: 08/21/17 00:00 Last Admin: 08/20/17 23:30 Dose: 999 mls/hr Cefotaxime Sodium 2 gm/ Sodium (Chloride) 100 mls @ 200 mls/hr IV ONETIME ONE Stop: 08/20/17 23:04 Last Admin: 08/21/17 00:09 Dose: 200 mls/hr - Exam General: Alert, Oriented HEENT: Pupils Equal, Pupils Reactive, EOMI, Mucous Membr. Moist/[place] Neck: Supple Lungs: Clear to Auscultation, Normal Respiratory Effort Cardiovascular: Regular Rate, Regular Rhythm GI/Abdominal Exam: Normal Bowel Sounds, Soft, Non-Tender, No Organomegaly, No Distention, No Abnormal Bruit, No Mass, Pelvis Stable (Female) Exam: Normal External Exam, Normal Speculum Exam, Normal Bimanual Exam Back Exam: Normal Inspection, Full Range of Motion Extremities: Normal Inspection, Normal Range of Motion, Non-Tender, No Pedal Edema, Normal Capillary Refill Skin: Warm, Dry, Intact Wound/Incisions: Healing Well Neurological: No New Focal Deficit Psy/Mental Status: Alert, Normal Affect, Normal Mood - Problem List Review Problem List Initiated/Reviewed/Updated: Yes - My Orders Last 24 Hours: My Active Orders 08/22/17 10:57 CBC WITH AUTO DIFF [HEME] Routine - Plan Plan:: Admit A: 27 yo , delivered on 08/[birth year]/2017 healthy baby boy, uncomplicated and delivery. Noted at delivery a small 1st degree laceration that was repaired. She is breast feeding. She comes to the ER this am due to fever and pain in the lower abdomen. WBC last pm 2300 18.7 this am [id number] P: Admit 24h ops, continue Cefotazime 2gm q8h (noted safe in breast feeding per [facility]), Reg diet. Repeat CBC at 1700, if stable in am may d/c with po antibiotics. will reprat her CBC today if her WBC is normal then we will send her on po antibiotic.
== END 2017-08-22 13:10 | disposition home or self-care (01) | DRG 532 ==
LOC: MW.ED 22:44 → MW.MS 08-21 01:49
PROVIDERS: ADMIT Obstetrics & Gynecology; ATTEND Obstetrics & Gynecology
DX: N80.9 Endometriosis, unspecified (principal); O86.4 Pyrexia of unknown origin following delivery; R10.30 Lower abdominal pain, unspecified
CPT/HCPCS: 36415; 71045; 71045-26; 76857; 76857-26; 80053; 81001; 83605; 85025; 85027; 85610; 87040; 87086; 96361; 96365; 99285-25; A9270-GY; J0698; J7030; J7040; J7120

== ENCOUNTER 2021-07-26 03:20 | Inpatient (IN) | payer BC ==
[2021-07-26] MEDS ORDERED: Oxytocin/0.9 % Sodium Chloride 30 UNIT/500 ML BAG ONE (03:34)
[2021-07-26] MEDS ORDERED: Lidocaine 1% 50 ML MDV ONE (03:41)
[2021-07-26] MEDS ORDERED: Tranexamic Acid 1,000 MG in Sodium Chloride 0.9% 100 ML IV PRN ×2 (03:57→04:22)
[2021-07-26] MEDS ORDERED: Butorphanol 1 MG/ML SDV IVPUSH PRN (03:57)
[2021-07-26] MEDS ORDERED: Carboprost Tromethamine 250 MCG/1 ML Amp IM PRN (03:57)
[2021-07-26] MEDS ORDERED: Sodium Chloride 0.9% 2.5 ML Syringe FLUSH PRN (03:57)
[2021-07-26] MEDS ORDERED: Sodium Chloride 0.9% 10 ML Syringe FLUSH PRN (03:57)
[2021-07-26] MEDS ORDERED: Methylergonovine 0.2 MG/1 ML Amp IM PRN ×2 (03:57→04:22)
[2021-07-26] MEDS ORDERED: Sodium Chloride 0.9% 20 ML SDV IV PRN (03:57)
[2021-07-26] MEDS ORDERED: Water For Irrigation,Sterile 1,000 ML Container IRR PRN (03:57)
[2021-07-26] MEDS ORDERED: Misoprostol 200 MCG Tab PO PRN (03:57)
[2021-07-26] MEDS ORDERED: Lidocaine 1% 50 ML MDV INJECT PRN (03:57)
[2021-07-26] MEDS ORDERED: Lactated Ringers 1,000 ML IV SCH (04:00)
[2021-07-26] MEDS ORDERED: Oxytocin/0.9 % Sodium Chloride 30 UNIT/500 ML BAG IV SCH (04:00)
[2021-07-26] MEDS ORDERED: Acetaminophen 500 MG Tab PO PRN ×2 (04:22)
[2021-07-26] MEDS ORDERED: Lanolin 100% Cream 7 GM Tube TOP PRN (04:22)
[2021-07-26] MEDS ORDERED: Witch Hazel Medicated Pads 40/Jar TOP PRN (04:22)
[2021-07-26] MEDS ORDERED: Ibuprofen 400 MG Tab PO PRN (04:22)
[2021-07-26] MEDS ORDERED: Bisacodyl 10 MG Supp RECTAL PRN (04:22)
[2021-07-26] MEDS ORDERED: Docusate Sodium 100 MG Cap PO PRN (04:22)
[2021-07-26] MEDS ORDERED: Benzocaine/Menthol 20%-0.5% Spray 78 GM Cannister TOP PRN (04:22)
[2021-07-26] MEDS: Ibuprofen 800 MG Tab PO PRN ×2 (04:33→21:02)
[2021-07-26] MEDS ORDERED: lamoTRIgine 100 MG Tab PO SCH (09:00)
[2021-07-26] MEDS ORDERED: Escitalopram 10 MG Tab PO SCH (09:00)
[2021-07-26] MEDS: Non-Formulary Medication 1 Each (Pnv No.95/Ferrous Fum/Folic Ac [Prenatal Tablet] 1 EACH T PO SCH (09:00)
[2021-07-26] MEDS: lamoTRIgine 100 MG Tab PO SCH (21:00)
[2021-07-26] MEDS: Escitalopram 10 MG Tab PO SCH (21:01)
[2021-07-27] MEDS: Non-Formulary Medication 1 Each (Pnv No.95/Ferrous Fum/Folic Ac [Prenatal Tablet] 1 EACH T PO SCH (09:26)
[2021-07-27] MEDS: Ibuprofen 800 MG Tab PO PRN (18:10)
[2021-07-27] MEDS: Escitalopram 10 MG Tab PO SCH (20:17)
[2021-07-27] MEDS: lamoTRIgine 100 MG Tab PO SCH (20:17)
== END 2021-07-28 10:35 | disposition home or self-care (01) | DRG 560 ==
LOC: MW.OBCHECK 03:20 → MW.OB 03:24 → MW.OBCHECK 03:41 → MW.OB 03:41 → OBSVTOIN 03:42 → MW.OB 03:43 → UNDOADMOB 03:43 → MW.OB 06:52
PROVIDERS: ADMIT Obstetrics & Gynecology; ATTEND Obstetrics & Gynecology
PROC: 10E0XZZ Delivery of Products of Conception, External Approach (ICD-10-PCS; principal; 2021-07-26)
PROC: 0KQM0ZZ Repair Perineum Muscle, Open Approach (ICD-10-PCS; 2021-07-26)
DX: O62.3 Precipitate labor (principal); Z37.0 Single live birth; O99.824 Streptococcus B carrier state complicating childbirth; O77.0 Labor and delivery complicated by meconium in amniotic fluid; O70.1 Second degree perineal laceration during delivery; Z20.822 Contact with and (suspected) exposure to COVID-19; Z3A.37 37 weeks gestation of pregnancy
CPT/HCPCS: 36415; 59409; 82803; 85014; 85018; 85027; 86592; 86850; 86900; 86901; A9270-GY; J2001; J2590; U0002